=== PATIENT | female | born 1945 | race Caucasian/White ===

== ENCOUNTER 2017-07-04 06:06 | Day surgery (SDC) | payer BC ==
[2017-07-03 15:09] VITALS: BMI 33.6
--- NOTE | 2017-07-03 23:13 | HP ---
SHORT STAY HISTORY AND PHYSICAL DATE OF ADMISSION: 07/04/2017 HISTORY OF PRESENT ILLNESS: This is a 72-year-old female referred to me for a colonoscopy for colon cancer screening. The patient has no specific GI symptoms. She has no abdominal pain or rectal blee ding. There is no family history of colon cancer. The patient comes for a colonoscopy for colon can cer screening. ALLERGIES: None. SOCIAL HISTORY: The patient does not smoke or drink alcohol. MEDICAL ILLNESSES: 1. Hypertension. 2. Hyperlipidemia. 3. Chronic kidney disease. 4. Arthritis. 5. Right foot surgery in 2007. 6. Fracture of right and left femur in [id number]. 7. Back surgery. PHYSICAL EXAMINATION: VITAL SIGNS: Pulse is 70, blood pressure 130/70. HEENT: Conjunctivae clear. CARDIOVASCULAR SYSTEM: Lungs within normal limits. ABDOMEN: Soft to palpate. No organomegaly. No tenderness. No masses. EXTREMITIES: Reveal no edema. ADMITTING DIAGNOSIS: A 72-year-old female, comes for a colonoscopy for colon cancer screening.
--- NOTE | 2017-07-04 08:31 | OP ---
DATE OF PROCEDURE: 07/04/2017 PROCEDURES PERFORMED: Colonoscopy and polypectomy with biopsy forceps. PREOPERATIVE DIAGNOSIS: A 72-year-old female undergoing colonoscopy for colon cancer kenya cintron. POSTOPERATIVE DIAGNOSES: 1. Sigmoid diverticular disease. 2. Sessile sigmoid polyp. 3. Small hemorrhoids, skin tag. PROCEDURE IN DETAIL: The patient was placed on her left lateral position and was given sedation by [facility]. A rectal exam was done before the scope was advanced into the rectum. The patient was found to have a skin tag - hemorrhoids. No other lesions were felt. A [employer]ax video col onoscope was introduced into the rectum and advanced all the way into the cecum. The prep was excell ent. The mucosa appeared normal throughout the colon with normal vascular pattern. The appendiceal orifice, ileocecal valve, and cecum, no pathology seen. The ascending colon, hepatic flexure, transv erse colon, splenic flexure, and descending colon, no pathology seen. The sigmoid colon showed scatt ered diverticular disease. A small sessile sigmoid polyp was removed with biopsy forceps. Rectum sh owed small hemorrhoids. DISCHARGE PLANNING: This is a 72-year-old female who came in for colonoscopy for colon can cer screening. She underwent colonoscopy and polypectomy. DISCHARGE RECOMMENDATIONS: 1. High-fiber diet. 2. Metamucil once a day. 3. The patient advised to call me if she develops abdominal pain, hematochezia or fever. 4. In the absence of any other symptoms, the patient will come back to me in 2 weeks.
[2017-07-04] MEDS ORDERED: Glycopyrrolate 0.2 MG/ML 5 ML SYRINGE ONE (16:29)
[2017-07-04] MEDS ORDERED: Lidocaine 1% PF 5 ML VIAL ONE (16:29)
[2017-07-04] MEDS ORDERED: PHENYLEPHRINE-NS 100 MCG/ML 10 ML SYRINGE ONE (16:29)
[2017-07-04] MEDS ORDERED: PROPOFOL 200 MG/20 ML VIAL ONE (16:29)
== END 2017-07-04 09:30 | disposition home or self-care (01) ==
LOC: SDC 06:06
PROVIDERS: ATTEND Internal Medicine Gastroenterology
PROC: 0DBN8ZX Excision of Sigmoid Colon, Via Natural or Artificial Opening Endoscopic, Diagnostic (ICD-10-PCS; principal; 2017-07-04)
DX: Z12.11 Encounter for screening for malignant neoplasm of colon (principal); K63.5 Polyp of colon; K57.30 Diverticulosis of large intestine without perforation or abscess without bleeding; K64.4 Residual hemorrhoidal skin tags; I12.9 Hypertensive chronic kidney disease with stage 1 through stage 4 chronic kidney disease, or unspecified chronic kidney disease; N18.9 Chronic kidney disease, unspecified; E78.5 Hyperlipidemia, unspecified; M19.90 Unspecified osteoarthritis, unspecified site; Z88.1 Allergy status to other antibiotic agents; Z98.890 Other specified postprocedural states; Z79.899 Other long term (current) drug therapy
CPT/HCPCS: 88305; J2001; J2704

== ENCOUNTER 2017-12-17 09:02 | Outpatient (CLI) | payer BC | END 2017-12-17 09:03 | disposition home or self-care (01) | LOC: BICMAMMO 09:02 | PROVIDERS: ATTEND Obstetrics & Gynecology | DX: Z12.31 Encounter for screening mammogram for malignant neoplasm of breast (principal); Z13.820 Encounter for screening for osteoporosis; Z80.3 Family history of malignant neoplasm of breast | CPT/HCPCS: 77063; 77067; 77080 ==

== ENCOUNTER 2018-11-18 15:31 | Outpatient (CLI) | payer BC ==
--- NOTE | 2018-11-18 17:23 | MMO ---
Bilateral MAMMO Bilat Screen [facility]. CLINICAL HISTORY: Patient is 73 years old and is seen for screening. The patient has the following family history of breast cancer: cousin female, malignant (generic). The patient has no personal history of cancer. The patient has a history of left Excisional Biopsy in Sep, 2006 - benign. VIEWS: The views performed were: bilateral craniocaudal with tomosynthesis and bilateral mediolateral oblique with tomosynthesis. FILMS COMPARED: The present examination has been compared to prior imaging studies performed at [facility] on 12/17/2014, 12/28/2015, 12/29/2016 and 12/17/2017. MAMMOGRAM FINDINGS: There are scattered fibroglandular densities. There is a post-surgical scar seen in the left breast. Finding remains unchanged from the prior study. There are no suspicious masses, suspicious calcifications, or new areas of architectural distortion. IMPRESSION: THERE IS NO MAMMOGRAPHIC EVIDENCE OF MALIGNANCY. A ROUTINE FOLLOW-UP MAMMOGRAM IN 1 YEAR IS RECOMMENDED. THE RESULTS OF THIS EXAM WERE SENT TO THE PATIENT. ACR BI-RADS Category 2 - Benign finding MAMMOGRAPHY NOTE: 1. A negative mammogram report should not delay a biopsy if a dominant of clinically suspicious mass is present. 2. Approximately 10% to 15% of breast cancers are not detected by mammography. 3. Adenosis and dense breasts may obscure an underlying neoplasm.
== END 2018-11-18 15:32 | disposition home or self-care (01) ==
LOC: BICMAMMO 15:31
PROVIDERS: ATTEND Obstetrics & Gynecology
DX: Z12.31 Encounter for screening mammogram for malignant neoplasm of breast (principal); Z80.3 Family history of malignant neoplasm of breast
CPT/HCPCS: 77063; 77067

== ENCOUNTER 2020-03-25 10:29 | Outpatient (CLI) | payer BC ==
--- NOTE | 2020-03-25 11:14 | RAD ---
EXAM: XR Hip Rt 2-3 View PROVIDED CLINICAL HISTORY: Right hip pain COMPARISON: 02/23/2008 FINDINGS: Postoperative changes of intramedullary femoral nail and proximal interlocking screw noted involving the right hip transfixing previously seen subtrochanteric fracture, which appears healed. There is marked concentric right hip joint space loss with periarticular osteophyte formation. There is no glen dence for hardware loosening or migration involving the visualized portions of the postoperative change. There is no evidence for fracture or other acute osseous abnormality. Lower lumbar spine dege nerative changes are partially visualized. 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
--- NOTE | 2020-03-25 11:15 | RAD ---
EXAM: XR Pelvis AP STANDARD PROVIDED CLINICAL HISTORY: Pain COMPARISON: None FINDINGS: Postoperative changes are seen involving both hips, without evidence for hardware loosening or migrat ion involving the visualized portions of the construct. Marked right hip joint space loss with periarticular osteophyte formation. Left hip joint space appears maintained. Lower lumbar spine degen erative changes are seen. No evidence for fracture or other acute osseous abnormality. IMPRESSION: Advanced right hip degenerative change.
--- NOTE | 2020-03-25 11:37 | RAD ---
Lumbar spine 3 views: 03/25/2020 COMPARISON: None HISTORY: Low back pain, right hip pain FINDINGS: There is multilevel degenerative endplate change and disc space narrowing at the L3-4, L4-5 , and L5-S1 levels. There is multilevel lower lumbar spine facet hypertrophy. There is no anterolisthesis or retrolisthesis noted. There is significant degenerative change involving bilateral hips, left greater than right. No acute fracture or dislocation is noted. IMPRESSION: Prominent multilevel lower lumbar spine degenerative change. If there are radicular sympt oms, MRI advised.
== END 2020-03-25 10:30 | disposition home or self-care (01) ==
LOC: BICRAD 10:29
PROVIDERS: ATTEND Internal Medicine
DX: M54.5 Low back pain (principal); M25.551 Pain in right hip; M47.816 Spondylosis without myelopathy or radiculopathy, lumbar region; M16.11 Unilateral primary osteoarthritis, right hip
CPT/HCPCS: 72100; 72170

== ENCOUNTER 2020-05-10 10:00 | Inpatient (IN) | payer MEDICARE, BC ==
[2020-07-12] MEDS ORDERED: Sodium Chloride 0.9% 100 ML ONE (07:06)
[2020-07-12] MEDS ORDERED: Tranexamic Acid 1,000 MG/10 ML VIAL ONE (07:06)
[2020-07-12] MEDS ORDERED: Vancomycin 1 GM/200 ML BAG ONE (07:06)
[2020-07-12] MEDS ORDERED: Fentanyl 100 MCG/2 ML VIAL ONE ×3 (07:57→12:42)
[2020-07-12] MEDS ORDERED: Midazolam HCl 2 mg/2 ml Vial ONE (07:57)
[2020-07-12] MEDS ORDERED: Acetaminophen 500 MG TAB PO PRN (08:43)
[2020-07-12] MEDS ORDERED: diphenhydrAMINE 25 MG CAP PO PRN ×2 (08:45→09:10)
[2020-07-12] MEDS ORDERED: Hydrocerin (Eucerin) Cream 120 gm Jar TOP PRN (08:45)
[2020-07-12] MEDS ORDERED: traMADol HCl 50 MG TAB PO PRN ×2 (08:45)
[2020-07-12] MEDS ORDERED: HYDROcodone/Acetaminophen 5/325 mg Tablet PO PRN (08:45)
[2020-07-12] MEDS ORDERED: Promethazine HCl 25 MG/ML VIAL IM PRN ×3 (08:45→11:53)
[2020-07-12] MEDS ORDERED: Ondansetron PF 4 MG/2 ML Vial IVP PRN ×2 (08:45→09:10)
[2020-07-12] MEDS ORDERED: Promethazine HCl 25 MG SUPP PR PRN (08:45)
[2020-07-12] MEDS ORDERED: diphenhydrAMINE 50 MG/ML VIAL IVP PRN (08:45)
[2020-07-12] MEDS ORDERED: Bupivacaine 0.25% 10 ML VIAL EPIDURAL PRN (08:45)
[2020-07-12] MEDS ORDERED: Naloxone HCl 0.4 mg/ml Vial IVP PRN (08:45)
[2020-07-12] MEDS ORDERED: Ketorolac Tromethamine 30 MG/ML VIAL IVP PRN (08:45)
[2020-07-12] MEDS ORDERED: Zolpidem Tartrate 5 MG TAB PO PRN ×2 (08:45→09:10)
[2020-07-12] MEDS ORDERED: Naloxone HCl 0.4 mg/ml Vial IV PRN (08:45)
[2020-07-12] MEDS ORDERED: diphenhydrAMINE 50 MG/ML VIAL IM PRN (08:45)
[2020-07-12] MEDS ORDERED: Acetaminophen 325 MG TAB PO PRN (09:10)
[2020-07-12] MEDS ORDERED: Lidocaine 2% Jelly 5 ML TUBE ONE (09:14)
[2020-07-12] MEDS ORDERED: Ropivacaine 0.2% HCl/PF 20 ML ONE (09:14)
[2020-07-12] MEDS ORDERED: Phenylephrine 10 MG/ML VIAL ONE (09:14)
[2020-07-12] MEDS ORDERED: Glycopyrrolate 0.2 MG/ML 5 ML SYRINGE ONE (10:36)
[2020-07-12] MEDS ORDERED: Rocuronium Bromide 10 MG/ML (10ML VIAL) ONE (10:36)
[2020-07-12] MEDS ORDERED: Dexamethasone 20 MG/5 ML VIAL ONE (10:36)
[2020-07-12] MEDS ORDERED: PROPOFOL 200 MG/20 ML VIAL ONE (10:36)
[2020-07-12] MEDS ORDERED: Lidocaine 1.5% w/Epi 1:200K 30 ML VIAL (Epid Use) ONE (10:36)
[2020-07-12] MEDS ORDERED: ePHEDrine 50 MG/ML VIAL ONE (10:36)
[2020-07-12] MEDS ORDERED: Promethazine HCl 25 MG/ML VIAL SLOW IVP PRN (11:53)
[2020-07-12] MEDS ORDERED: Ondansetron HCl/PF 4 MG/2 ML Vial IVP PRN (11:53)
--- NOTE | 2020-07-12 12:29 | RAD ---
2 views of the right hip: 07/12/2020 COMPARISON: 03/25/2020 HISTORY: Evaluate right hip following arthroplasty FINDINGS: There is soft tissue swelling with postoperative gas lateral to the proximal right femur co nsistent with recent surgery. Previously noted proximal femoral hardware has been removed and replaced with a right hip arthroplasty. No evidence for hardware failure or acute fracture seen. IMPRESSION: Radiographic evidence of recent right total hip arthroplasty.
[2020-07-12] MEDS ORDERED: CEFAZOLIN 2 GM in Premix Bag 1 BAG IVPB SCH (15:00)
[2020-07-12 15:36] VITALS: BMI 30.9
[2020-07-12] MEDS: Sodium Chloride 0.9% 1,000 ML IV SCH ×2 (16:33→21:24)
[2020-07-12] MEDS: CEFAZOLIN 2 GM in Premix Bag 1 BAG IVPB SCH (18:02)
[2020-07-12] MEDS ORDERED: GASSERI PO SCH (21:00)
[2020-07-12] MEDS ORDERED: B BIFIDUM PO SCH (21:00)
[2020-07-12] MEDS ORDERED: [UNRECOGNIZED DRUG - OTHER] PO SCH (21:00)
[2020-07-12] MEDS: Simvastatin 10 MG TAB PO SCH (21:07)
[2020-07-12] MEDS: Ferrous Gluconate 324 MG TAB PO SCH (21:08)
[2020-07-12] MEDS: Multivit, Therapeutic 1 TAB PO SCH (21:08)
[2020-07-12] MEDS: Senokot S 8.6-50 MG TAB PO SCH (21:08)
[2020-07-12] MEDS: Aspirin 81 mg Enteric Coated Tablet PO SCH (21:08)
[2020-07-12] MEDS: hydrALAZINE 10 MG TAB PO SCH (21:08)
[2020-07-13] MEDS: CEFAZOLIN 2 GM in Premix Bag 1 BAG IVPB SCH (01:36)
[2020-07-13] MEDS: fentaNYL Citrate/PF 500 MCG, Bupivacaine 10 ML in Sodium Chloride 0.9% 80 ML EPIDURAL SCH ×2 (04:25→18:46)
[2020-07-13] MEDS: Sodium Chloride 0.9% 1,000 ML IV SCH ×2 (05:50→09:37)
[2020-07-13 06:17] LABS: Hemoglobin 10.7 g/dL (12.0-16.0); Mean Corpuscular Hemoglobin 31.5 pg (27.0-31.0); Mean Corpuscular Volume 95.5 fL (78.0-98.0); Mean Platelet Volume 8.9 fL (7.4-10.4); Platelet Count 161 thou/uL (130-400); RBC Distribution Width 11.7 % (11.5-14.5); Red Blood Cell (RBC) Count 3.39 mill/uL (4.20-5.40); White Blood Cell (WBC) Count 14.1 thou/uL (4.8-10.8)
[2020-07-13] MEDS: Cholecalciferol 1,000 UNITS (25 MCG) TAB PO SCH (08:13)
[2020-07-13] MEDS: Aspirin 81 mg Enteric Coated Tablet PO SCH ×2 (08:13→19:55)
[2020-07-13] MEDS: Senokot S 8.6-50 MG TAB PO SCH ×2 (08:13→19:54)
[2020-07-13] MEDS: HYDROcodone/Acetaminophen 5/325 mg Tablet PO PRN ×2 (08:22→18:46)
[2020-07-13] MEDS: Ferrous Gluconate 324 MG TAB PO SCH ×2 (08:22→19:55)
[2020-07-13] MEDS: Multivitamin W/ Minerals 1 TAB PO SCH (08:23)
--- NOTE | 2020-07-13 10:42 | OP ---
DATE OF PROCEDURE: 07/12/2020 TITLE OF PROCEDURE: Hardware removal of right hip and conversion of previous hip surgery to total hip arthroplasty. CONSUMER SERVICES CONSULTANT: Nickie Harkins PA-C. The assistant manager pt/co-surgeon was present through the entire procedure and was responsible for providing exposure, tissue retraction and any necessary limb or tissue manipulation required to obtain necessary reduction or hardware placement. The assistant manager pt/co-surgeon also provided bleeding control, tissue closure, and suturing in conjunction with the primary surgeon. BLOOD LOSS: 300. SPECIMENS: None. DRAINS: None. COMPLICATIONS: None. DESCRIPTION OF PROCEDURE: After appropriate consent was obtained, the patient was taken to the operating room, where general anesthesia was induced. She was placed in the left lower decubitus position. Right leg was prepped from the toes to the ribcage in the usual fashion. I chose an incision between her two old incisions. Proximally and distally, I opened up the old incision for the locking screw. The distal screw removal was fairly simple. I simply opened the old incision, palpated the screw and removed it. Proximally, I made an anterolateral approach to the hip. I extended this distally so I can easily find and remove the hip lag screw, extended proximally so I could get to the top of the nail. I removed the locking screw from the nail and then removed the lag screw. The nail was then extracted with a slap hammer. I then performed my usual anterolateral approach, taking down about a quarter of the abductors. Hip was dislocated. Neck was cut with an oscillating saw. Acetabulum was circumferentially exposed. There was quite a bit of wear posteriorly on the acetabulum, reamed to a size 50, which was about all I felt I could get with the posterior wall defect. I was able to get a good press-fit. I used a single screw and then placed the liner. Attention was turned to the femur which was opened with a T-handle and a [employer] cutter and then broached up to a size 3. Size 3 stem was impacted with a +2.5 head for length. The trial showed good stability and good labeling. Trials removed. Irrigation performed. Permanent femoral implant was impacted into place. The hip was reduced. Once again checked for stability, abduction repaired with #5 Ethibond and #2 Vicryl and the skin was closed with 2-0 Monoderm. Job ID: [id number]
[2020-07-13] MEDS: Multivit, Therapeutic 1 TAB PO SCH (19:54)
[2020-07-13] MEDS: Simvastatin 10 MG TAB PO SCH (19:55)
[2020-07-13] MEDS: hydrALAZINE 10 MG TAB PO SCH (19:55)
[2020-07-14] MEDS: Sodium Chloride 0.9% 1,000 ML IV SCH (04:44)
[2020-07-14 06:50] LABS: Hemoglobin 9.9 g/dL (12.0-16.0); Mean Corpuscular HGB CONC 33.7 g/dL (32.0-36.0); Mean Corpuscular Hemoglobin 32.4 pg (27.0-31.0); Mean Corpuscular Volume 96.1 fL (78.0-98.0); Platelet Count 124 thou/uL (130-400); RBC Distribution Width 11.8 % (11.5-14.5); Red Blood Cell (RBC) Count 3.05 mill/uL (4.20-5.40)
[2020-07-14] MEDS: Aspirin 81 mg Enteric Coated Tablet PO SCH (08:26)
[2020-07-14] MEDS: Ferrous Gluconate 324 MG TAB PO SCH (08:26)
[2020-07-14] MEDS: Cholecalciferol 1,000 UNITS (25 MCG) TAB PO SCH (08:27)
[2020-07-14] MEDS: Senokot S 8.6-50 MG TAB PO SCH (08:27)
[2020-07-14] MEDS: Multivitamin W/ Minerals 1 TAB PO SCH (08:27)
[2020-07-14] MEDS: HYDROcodone/Acetaminophen 5/325 mg Tablet PO PRN (08:32)
[2020-07-14] MEDS ORDERED: HYDROcodone/Acetaminophen 10/325 mg Tablet PO PRN ×2 (08:45)
[2020-07-14 11:51] VITALS: BP 143/69; TEMP 98.3
--- NOTE | 2020-07-14 14:14 | PRG ---
DATE OF SERVICE: 07/13/2020 SUBJECTIVE: Joann is a 75-year-old female, postop day 1 from a right total hip arthroplasty. She is doing relatively well. Her pain has been controlled. She is rested well. OBJECTIVE: VITAL SIGNS: Temperature 97.7, pulse 60, respiratory rate 14 and nonlabored, O2 saturation 95% on room air, and blood pressure 110/58. GENERAL: She is alert and oriented to person, place, time, and situation, responsive, appropriate with examiner. EXTREMITIES: No strikethrough or erythema. There is no malrotation or shortening of the right lower extremity, and she is neurovascularly intact. LABORATORY DATA: Hemoglobin and hematocrit 10.7 and 32.4. IMPRESSION: 1. A 75-year-old female, postop day 1, right total hip arthroplasty. 2. Asymptomatic hemorrhagic anemia. PLAN: Initiate physical therapy. Monitor for pain control. Continue to monitor for hemorrhage. Job ID: [id number]
== END 2020-07-14 14:20 | disposition home or self-care (01) | DRG 470 ==
LOC: SJJU 07-12 06:34
PROVIDERS: ADMIT Orthopaedic Surgery; ATTEND Orthopaedic Surgery
PROC: 0SR904Z Replacement of Right Hip Joint with Ceramic on Polyethylene Synthetic Substitute, Open Approach (ICD-10-PCS; principal; 2020-07-12)
PROC: 0QP604Z Removal of Internal Fixation Device from Right Upper Femur, Open Approach (ICD-10-PCS; 2020-07-12)
DX: M16.11 Unilateral primary osteoarthritis, right hip (principal); D62 Acute posthemorrhagic anemia; Z20.822 Contact with and (suspected) exposure to COVID-19; I10 Essential (primary) hypertension; E78.5 Hyperlipidemia, unspecified; J30.2 Other seasonal allergic rhinitis; E66.9 Obesity, unspecified; Z79.899 Other long term (current) drug therapy; Z98.51 Tubal ligation status; Z68.31 Body mass index [BMI] 31.0-31.9, adult
CPT/HCPCS: 36415; 85027; C1776; J0690; J1100; J2001; J2250; J2370; J2405; J2704; J2795; J3010; J3370; J3490; Q0163

== ENCOUNTER 2020-11-24 10:39 | Outpatient (CLI) | payer MEDICARE, BC | END 2020-11-24 10:40 | disposition home or self-care (01) | LOC: BICMAMMO 10:39 | PROVIDERS: ATTEND Obstetrics & Gynecology | DX: Z12.31 Encounter for screening mammogram for malignant neoplasm of breast (principal); Z91.89 Other specified personal risk factors, not elsewhere classified; Z80.3 Family history of malignant neoplasm of breast | CPT/HCPCS: 77063; 77067 ==

== ENCOUNTER 2021-11-08 09:59 | Outpatient (CLI) | payer BC | END 2021-11-08 10:00 | disposition home or self-care (01) | LOC: BICMAMMO 09:59 | PROVIDERS: ATTEND Obstetrics & Gynecology | DX: Z12.31 Encounter for screening mammogram for malignant neoplasm of breast (principal); N64.89 Other specified disorders of breast; Z91.89 Other specified personal risk factors, not elsewhere classified; Z80.3 Family history of malignant neoplasm of breast | CPT/HCPCS: 77063; 77067 ==

== ENCOUNTER 2021-11-14 12:57 | Outpatient (CLI) | payer BC | END 2021-11-14 12:58 | disposition home or self-care (01) | LOC: BICMAMMO 12:57 | PROVIDERS: ATTEND Internal Medicine | DX: R92.8 Other abnormal and inconclusive findings on diagnostic imaging of breast (principal) | CPT/HCPCS: G0279 ==

== ENCOUNTER 2022-07-03 09:59 | Outpatient (CLI) | payer BC | END 2022-07-03 10:00 | disposition home or self-care (01) | LOC: BICRAD 09:59 | PROVIDERS: ATTEND Internal Medicine | DX: I10 Essential (primary) hypertension (principal); R06.00 Dyspnea, unspecified | CPT/HCPCS: 71046 ==

== ENCOUNTER → 2022-12-12 | Day surgery (SDC) | payer BC | LOC: BICULT 12:31 | PROVIDERS: ATTEND Obstetrics & Gynecology | PROC: 0H95XZX Drainage of Chest Skin, External Approach, Diagnostic (ICD-10-PCS; principal; 2022-12-12) | DX: C50.311 Malignant neoplasm of lower-inner quadrant of right female breast (principal); R92.8 Other abnormal and inconclusive findings on diagnostic imaging of breast | CPT/HCPCS: 19083; 88305; 88342 ==

== ENCOUNTER 2023-01-08 09:00 | Outpatient (CLI) | payer BC ==
[2023-01-08 11:24] LABS: #Eosinphils 0.1 10x3/uL (0.0-0.5); #Monocytes 0.7 10x3/uL (0.0-1.1); #Neutrophils 4.5 10x3/uL (1.5-8.4); %Basophils 0.5 % (0.0-2.0); %Eosinophils 1.7 % (0.0-6.0); %Lymphocytes 15.8 % (18.0-47.0); %Neutrophils 70.7 % (40.0-75.0); Hematocrit 42.9 % (34.9-44.5); Mean Corpuscular HGB CONC 32.6 g/dL (32.0-36.0); Mean Corpuscular Hemoglobin 31.8 pg (27.0-33.0); Mean Corpuscular Volume 97.5 fl (81.6-98.3); Mean Platelet Volume 11.3 fl (7.4-10.4); Platelet Count 173 10x3/uL (150-450); RBC Distribution Width 12.5 % (11.5-14.5); White Blood Cell (WBC) Count 6.4 10x3/uL (3.5-10.5)
[2023-01-08 11:30] LABS: Anion Gap 12 mmol/L (10-20); BUN (Urea Nitrogen) 18 mg/dL (9.8-20.1); Calc. Creatinine Clearance 0 mL/min (70-130); Calcium 8.7 mg/dL (7.8-10.44); Carbon Dioxide 26 mmol/L (23-31); Chloride 105 mmol/L (98-107); Estimated GFR 43; Glucose 108 mg/dL (83-110); Potassium 4.9 mmol/L (3.5-5.1); Sodium 138 mmol/L (136-145)
== END 2023-01-08 09:01 | disposition home or self-care (01) ==
LOC: LABBT 09:00
PROVIDERS: ATTEND Surgery
DX: Z01.818 Encounter for other preprocedural examination (principal); C50.911 Malignant neoplasm of unspecified site of right female breast
CPT/HCPCS: 80048; 85025; 93005; 93010

== ENCOUNTER 2023-01-10 08:45 | Day surgery (SDC) | payer BC ==
[2023-01-08 10:09] VITALS: BMI 34.7
[2023-01-10] MEDS ORDERED: Sodium Bicarbonate 2.5 MEQ/5 ML VIAL ONE (09:48)
[2023-01-10] MEDS ORDERED: Lidocaine 1% PF 5 ML VIAL ONE ×2 (09:48→11:46)
[2023-01-10] MEDS ORDERED: Lidocaine 2% PF 5 ML VIAL ONE (11:08)
[2023-01-10] MEDS ORDERED: Methylene Blue 50 MG/10 ML AMPUL ONE (11:08)
[2023-01-10] MEDS ORDERED: Bupivacaine 0.25% HCL 30 ML VIAL ONE (11:08)
[2023-01-10] MEDS ORDERED: EPINEPHrine 1 MG/ML AMP ONE (11:08)
[2023-01-10] MEDS ORDERED: fentaNYL PF 100 MCG/2 ML SYRINGE ONE (11:10)
[2023-01-10] MEDS ORDERED: Sodium Chloride 0.9% 100 ML ONE (11:19)
[2023-01-10] MEDS ORDERED: CEFAZOLIN 2 GM VIAL ONE (11:19)
[2023-01-10] MEDS ORDERED: PROPOFOL 200 MG/20 ML VIAL ONE (11:46)
[2023-01-10] MEDS ORDERED: Ondansetron PF 4 MG/2 ML Vial ONE (11:46)
[2023-01-10] MEDS ORDERED: diphenhydrAMINE 50 MG/ML VIAL ONE (11:46)
[2023-01-10] MEDS ORDERED: Dexamethasone 20 MG/5 ML VIAL ONE (11:46)
[2023-01-10] MEDS ORDERED: ePHEDrine Sulfate 50 MG/10 ML VIAL ONE (11:46)
[2023-01-10] MEDS ORDERED: fentaNYL 50 mcg/mL 1 mL Vial ONE (14:05)
[2023-01-10] MEDS ORDERED: Acetaminophen 500 MG TAB ONE (16:20)
== END 2023-01-10 16:25 | disposition home or self-care (01) ==
LOC: SDC 08:45
PROVIDERS: ATTEND Surgery
PROC: 0HB5XZX Excision of Chest Skin, External Approach, Diagnostic (ICD-10-PCS; principal; 2023-01-10)
PROC: 0HBT0ZZ Excision of Right Breast, Open Approach (ICD-10-PCS; principal; 2023-01-10)
DX: C50.511 Malignant neoplasm of lower-outer quadrant of right female breast (principal); C50.911 Malignant neoplasm of unspecified site of right female breast; I10 Essential (primary) hypertension; N17.9 Acute kidney failure, unspecified; M19.90 Unspecified osteoarthritis, unspecified site; Z98.51 Tubal ligation status; Z98.890 Other specified postprocedural states; Z88.1 Allergy status to other antibiotic agents; Z88.8 Allergy status to other drugs, medicaments and biological substances; Z79.899 Other long term (current) drug therapy
CPT/HCPCS: 19285; 76098; 78195; 88307; 88342; A9541; J0171; J1100; J1200; J2001; J2405; J2704; J3010; J3490; Q9968; S0020

== ENCOUNTER 2023-02-26 13:45 | Outpatient (CLI) | payer BC | END 2023-02-26 13:46 | disposition home or self-care (01) | LOC: BICMAMMO 13:45 | PROVIDERS: ATTEND Internal Medicine | DX: Z13.820 Encounter for screening for osteoporosis (principal); Z78.0 Asymptomatic menopausal state | CPT/HCPCS: 77080 ==

== ENCOUNTER 2024-02-27 13:06 | Outpatient (CLI) | payer BC | END 2024-02-27 13:07 | disposition home or self-care (01) | LOC: BICMAMMO 13:06 | PROVIDERS: ATTEND Internal Medicine | DX: C50.919 Malignant neoplasm of unspecified site of unspecified female breast (principal); M85.89 Other specified disorders of bone density and structure, multiple sites | CPT/HCPCS: 77066; 77080; G0279 ==

== ENCOUNTER 2025-03-05 09:28 | Outpatient (CLI) | payer BC | END 2025-03-05 09:29 | disposition home or self-care (01) | LOC: SCSBT 09:28 | PROVIDERS: ATTEND Internal Medicine | DX: Z13.820 Encounter for screening for osteoporosis (principal); C50.311 Malignant neoplasm of lower-inner quadrant of right female breast | CPT/HCPCS: 77080 ==